=== PATIENT | female | born 1950 ===

== ENCOUNTER 2018-10-12 07:05 | Day surgery (SDC) | payer OTHER ==
[2018-10-12] VITALS (20 sets, daily range): BP systolic 128–178; BP diastolic 60–80; PULSE 62–78; RESP 18–21; Ht 149.9 cm; Wt 84.0 kg
[~2018-10-12] VITALS: Ht 149.9 cm; Wt 84.0 kg
--- NOTE | 2018-10-12 07:35 | HPN ---
Date/Time of Note Date/Time of Note DATE: 10/12/18 TIME: 07:35 Interval H&P Admission Note Pt. seen H&P reviewed: No system changes ANA HOLM DPM Oct 12, 2018 07:35
[2018-10-12] MEDS ORDERED: ATEN50TA PO (08:44)
[2018-10-12] MEDS ORDERED: METF850T13 PO (08:44)
[2018-10-12] MEDS ORDERED: LANS30CA PO (08:44)
[2018-10-12] MEDS ORDERED: SITA100T11 PO (08:44)
[2018-10-12] MEDS ORDERED: LOSA50TA14 PO (08:44)
[2018-10-12] MEDS ORDERED: BUPIVACAINE 0.5% (SDV) 30 ML INJ ONE (08:52)
[2018-10-12] MEDS ORDERED: LIDOCAINE 1% (MPF) 30 ML INJ ONE (08:52)
[2018-10-12] MEDS ORDERED: DEXAMETHASONE 4 MG/ML 1 ML INJ ONE (08:52)
--- NOTE | 2018-10-12 09:02 | PREAC ---
Date/Time of Note Date/Time of Note DATE: 10/12/18 TIME: 09:00 Anesthesia Eval and Record Evaluation Time Pre-Procedure Interview DATE: 10/12/18 TIME: 09:00 Age 67 Sex female NPO: 8 hrs Preoperative diagnosis Rt 5th toe hammer toe Planned procedure Rt foot 5th toe Arthroplasty Past Medical History Past Medical History: Includes Cardio: HTN, Dyslipidemia Endo: Diabetes GI: Morbid obesity Surgery & Anesthesia Issues No known issue Meds Anticoagulation: No Beta Jessa within 24 hr: Yes Reported Medications Metformin Hcl* (Metformin Hcl*) 850 Mg Tablet, 850 MG PO WITH BREAKFAST, #30 TAB 10/12/18 Lansoprazole* (Lansoprazole*) 30 Mg Capsule.dr, 30 MG PO BID, CAP 10/12/18 Losartan Potassium* (Losartan Potassium*) 50 Mg Tablet, 50 MG PO BID, TAB 10/12/18 Sitagliptin* (Januvia*) 100 Mg Tablet, 100 MG PO DAILY, #30 TAB 10/12/18 Atenolol* (Atenolol*) 50 Mg Tablet, 50 MG PO BID, #60 TAB 10/12/18 Meds reviewed: Yes Allergies Coded Allergies: No Known Allergy (Unverified , 10/12/18) Allergies Reviewed: Yes Labs/Studies Labs Reviewed: Reviewed by anesthesiologist Result Diagram: 10/12/18 0753 10/12/18 0753 Laboratory Tests 10/12/18 07:53 test: N/A Studies: ECG Pre-procedure Exam Last vitals Vital Signs Date Temp Pulse Resp B/P (MAP) Pulse Ox O2 O2 Flow FiO2 Time Delivery Rate 10/12/18 97.8 78 18 158/80 98 Room Air 07:39 (106) Airway: Adequate mouth opening, Adequate thyromental dist Mallampati: Mallampati II Teeth: Normal Lung: Normal Heart: Normal ASA Physical Status ASA physical status: 3 Emergency: None Planned Anesthetic General/MAC: LMA Planned Pain Management Parenteral pain med, Local by surgeon Pre-operative Attestations Prior to commencing anesthesia and surgery, the patient was re-evaluated, there was verification of: *The patient's identity *The results of appropriate recent lab work and preoperative vital signs *The above evaluation not changing prior to induction *Anesthetic plan, risk benefits, alternative and complications discussed with patient/family; questions answered; patient/family understands, accepts and wishes to proceed. CORAZON SIMOMNS MD Oct 12, 2018 09:02
[2018-10-12] MEDS ORDERED: MIDAZOLAM 1 MG/ML 2 ML INJ ONE (09:12)
[2018-10-12] MEDS ORDERED: FENTAnyl 50 MCG/ML VIAL ONE (09:12)
[2018-10-12] MEDS ORDERED: LIDOCAINE 2% (SDV) 5 ML INJ ONE (09:46)
[2018-10-12] MEDS ORDERED: ETOMIDATE 20 MG INJ ONE (09:46)
[2018-10-12] MEDS ORDERED: CEFAZOLIN 1 GM INJ ONE (09:46)
[2018-10-12] MEDS ORDERED: ONDANSETRON 4 MG INJ ONE (09:47)
--- NOTE | 2018-10-12 09:47 | SIPON ---
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
[2018-10-12] MEDS ORDERED: METOCLOPRAMIDE 10 MG INJ IV PRN (10:00)
[2018-10-12] MEDS ORDERED: DIPHENHYDRAMINE 50 MG INJ IV PRN (10:00)
[2018-10-12] MEDS ORDERED: ONDANSETRON 4 MG INJ IV PRN (10:00)
[2018-10-12] MEDS ORDERED: MEPERIDINE 25 MG INJ IV PRN (10:00)
[2018-10-12] MEDS ORDERED: FENTAnyl 50 MCG/ML VIAL IV PRN (10:00)
[2018-10-12] MEDS ORDERED: HYDROmorphONE 1 MG/5 ML IV SYRINGE IV PRN ×2 (10:00)
[2018-10-12] MEDS ORDERED: LABETALOL HCL 20MG INJ IV PRN (10:00)
[2018-10-12] MEDS ORDERED: KETOROLAC 30 MG INJ IV PRN (10:00)
[2018-10-12] MEDS ORDERED: hydrALAzine 20 MG INJ IV PRN (10:00)
--- NOTE | 2018-10-12 10:00 | PAC ---
Date/Time of Note Date/Time of Note DATE: 10/12/18 TIME: 10:00 Post-Anesthesia Notes Post-Anesthesia Note Last documented vital signs Vital Signs Date Temp Pulse Resp B/P (MAP) Pulse Ox O2 O2 Flow FiO2 Time Delivery Rate 10/12/18 97.8 78 18 158/80 98 Room Air 07:39 (106) Activity: WNL Respiratory function: WNL Cardiovascular function: WNL Mental status: Baseline Pain reasonably controlled: Yes Hydration appropriate: Yes Nausea/Vomiting absent: Yes Comments BP:142/67, P:68, Spo2:100%, T:98,8 CORAZON SIMMONS MD Oct 12, 2018 10:00
--- NOTE | 2018-10-12 11:42 | OPR ---
DATE OF OPERATION: 10/12/2018 PREOPERATIVE DIAGNOSIS: Hammertoe, fifth toe right foot. POSTOPERATIVE DIAGNOSIS: Hammertoe, fifth toe right foot. PROCEDURE: Arthroplasty PIPJ fifth toe right foot. DESCRIPTION OF PROCEDURE: The patient was brought to the OR and placed in a supine position on the op erating room table. Anesthesia was achieved using MAC and local for 10 mL of Xylocaine 1% plain. Th e ankle was then wrapped several times with Webril and tourniquet was placed over the area. Ane sthesia was achieved. The foot was then prepped and draped in the usual sterile fashion and tourniqu et was inflated to 250 mmHg. Attention was then directed to the dorsal aspect of the fifth toe. Two semielliptical incisions were made over the PIPJ joint. The incision was then deepened in the same plane using sharp and blunt dissection. The head of the proximal phalanx was identified and resected using a bone cutter. The area was then flushed with normal saline. Extensor tendon reattachment wa s obtained with 4-0 Vicryl, subcutaneous closure with 4-0 Vicryl and skin closure was with 4-0 nylon in a simple interrupted fashion. The surgical site was then infiltrated with 4 mL of 0.5% Marcaine p butch and 1 mL of dexamethasone phosphate. The surgical site was then covered with Adaptic, 4 x 4s an d Kerlix in a compressive fashion. Tourniquet was deflated and immediate capillary refill was observ ed throughout digits of the right foot. The patient tolerated anesthesia and procedure well and left the OR for recovery room with vital signs stable and neurovascular status intact. Dictated By: ANA STRATTON/BARRETT Conf#: [id number] DID#: [id number]
== END 2018-10-12 11:35 | disposition home or self-care (01) ==
LOC: SDS 07:05
PROVIDERS: ATTEND Podiatrist
DX: M20.41 Other hammer toe(s) (acquired), right foot (principal); E78.5 Hyperlipidemia, unspecified; I10 Essential (primary) hypertension; E11.9 Type 2 diabetes mellitus without complications; Z79.84 Long term (current) use of oral hypoglycemic drugs
CPT/HCPCS: 28285; 80053; 82962; 85025; 85610; 85730; 88304; 88311; J0360; J0690; J1100; J1885; J2175; J2250; J2405; J3010